=== PATIENT | male | born 1955 | race African-American/Black ===

== ENCOUNTER 2017-05-05 13:07 | Emergency (ER) | payer MEDICAID, OTHER ==
[~2017-05-05] VITALS: Ht 180.3 cm; Wt 87.0 kg
[2017-05-05 19:08] VITALS: BP 125/78
== END 2017-05-05 19:09 | disposition home or self-care (01) ==
LOC: ER 14:27
DX: G89.29 Other chronic pain (principal); M54.5 Low back pain
CPT/HCPCS: 99283